=== PATIENT | female | born 1960 | race Caucasian/White ===

== ENCOUNTER 2018-11-27 15:56 | Outpatient (CLI) | payer OTHER ==
--- NOTE | 2018-11-27 17:26 | RAD ---
PA AND LATERAL CHEST X-RAY: 11/27/2018 HISTORY: Cough. Follow up abnormal chest x-ray in July 2018. COMPARISON: No recent chest x-ray is available for direct comparison. FINDINGS: The cardiac silhouette and pulmonary vasculature are within normal limits. The lungs are clear. The re are mild degenerative changes seen in the spine. There has been no significant interval change wh en compared to a prior chest x-ray in 2007. IMPRESSION: No acute cardiopulmonary process. POS: [facility]
== END 2018-11-27 15:57 | disposition home or self-care (01) ==
LOC: BICRAD 15:56
PROVIDERS: ATTEND Internal Medicine
DX: R05 Cough (principal)
CPT/HCPCS: 71046

== ENCOUNTER 2020-02-02 16:30 | Outpatient (CLI) | payer OTHER ==
--- NOTE | 2020-02-02 16:54 | RAD ---
EXAM: Chest PA and lateral: HISTORY: Cough. COMPARISON: 11/27/2018 FINDINGS: Heart: Normal cardiac silhouette Aorta: Unremarkable Pulmonary vessels: Normal Costophrenic angles: Costophrenic angles are clear. Lungs: No consolidation or masses. Pneumothorax: No pneumothorax Osseous structures: No osseous abnormalities IMPRESSION: No acute cardiopulmonary process.
--- NOTE | 2020-02-02 16:57 | RAD ---
XR Thoracic Spine 3 V STANDARD History: Back pain Comparison: None. Findings: No acute fracture or malalignment. Multilevel bridging osteophytes of the thoracic spine. R ight upper quadrant surgical clips. Posterior parasternal soft tissues are unremarkable. Impression: Mild degenerative change. No acute osseous abnormality.
--- NOTE | 2020-02-02 16:57 | RAD ---
HISTORY: Acute left frontal intracranial hemorrhage. Exam: 2 views abdomen HISTORY: Abdominal pain. COMPARISON: none FINDINGS: Cholecystomy clips in the right upper quadrant. Nonspecific bowel gas pattern. No suspicious densitie s in the abdomen or pelvis. No acute osseous abnormalities. IMPRESSION: Nonspecific bowel gas pattern.
--- NOTE | 2020-02-02 17:11 | RAD ---
EXAM: LUMBAR SPINE TWO VIEWS: 02/02/20 HISTORY: Back pain. FINDINGS: Weightbearing, AP and lateral views of the lumbar spine demonstrate multilevel disc osteophytosis wit h slight vertical height loss of T12. No significant malalignment. No acute fracture or dislocation. IMPRESSION: Multilevel disc osteophytosis and facet arthrosis, evidence of spondylosis. Mild vertical height loss of T12 which has an old appearance. POS: [facility]
== END 2020-02-02 16:31 | disposition home or self-care (01) ==
LOC: BICRAD 16:30
PROVIDERS: ATTEND Internal Medicine
DX: R05 Cough (principal); M54.9 Dorsalgia, unspecified; R10.9 Unspecified abdominal pain; M47.816 Spondylosis without myelopathy or radiculopathy, lumbar region; M25.78 Osteophyte, vertebrae; M47.814 Spondylosis without myelopathy or radiculopathy, thoracic region
CPT/HCPCS: 71046; 72072; 72100; 74019

== ENCOUNTER 2020-02-05 08:36 | Outpatient (CLI) | payer OTHER ==
--- NOTE | 2020-02-05 11:05 | ULT ---
ULTRASOUND ABDOMEN: Date: 02/05/2020 HISTORY: Abdominal pain. FINDINGS: The liver demonstrates increased echogenicity consistent with fatty infiltration, without focal mass or intrahepatic ductal dilatation. The patient is post cholecystectomy. The common duct measures 4.0 mm in diameter. The spleen, kidneys, and visualized portions of the pancreas, aorta, and IVC appear n ormal. No free fluid is seen. IMPRESSION: 1. Fatty liver. 2. Status post cholecystectomy. POS: [facility]
== END 2020-02-05 08:37 | disposition home or self-care (01) ==
LOC: ULT 08:36
PROVIDERS: ATTEND Internal Medicine
DX: R10.9 Unspecified abdominal pain (principal); K76.0 Fatty (change of) liver, not elsewhere classified; Z90.49 Acquired absence of other specified parts of digestive tract
CPT/HCPCS: 93975

== ENCOUNTER 2024-12-09 15:05 | Outpatient (CLI) | payer BC | END 2024-12-09 15:06 | disposition home or self-care (01) | LOC: RAD 15:05 | PROVIDERS: ATTEND Internal Medicine | DX: R06.00 Dyspnea, unspecified (principal) | CPT/HCPCS: 71046 ==